=== PATIENT | female | born 1965 | race Caucasian/White ===

== ENCOUNTER 2022-10-25 13:36 | Outpatient (CLI) | payer MEDICAID, SELFPAY ==
--- NOTE | 2022-10-25 13:44 | MM_ITS ---
WS: [id number] BILATERAL 3D TOMOSYNTHESIS DIGITAL SCREENING MAMMOGRAPHY WITH CAD CLINICAL INFORMATION: SCREENING HISTORY: Screening mammogram. No current complaints. COMPARISON: None. TECHNIQUE: Bilateral CC and MLO views. FINDINGS: Scattered fibroglandular densities bilaterally. No suspicious focal mass, asymmetry, calcifications, or architectural distortion. No evidence of malignancy. Lucent centered calcification LEFT breast. MM/[place] [id number] IMPRESSION: BI-RADS: 2-Benign FOLLOW UP: 1 Year Follow-up Recommend return to annual screening mammography.
== END 2022-10-25 13:37 | disposition home or self-care (01) ==
LOC: RAD 13:40
PROVIDERS: PCP Family Medicine; Visit Provider Family Medicine
DX: Z12.31 Encounter for screening mammogram for malignant neoplasm of breast (principal)
CPT/HCPCS: 77063; 77067

== ENCOUNTER → 2022-12-29 15:46 | Outpatient (BNVA) | payer MEDICAID, SELFPAY | PROVIDERS: PCP Family Medicine; Visit Provider Registered Nurse Neonatal Intensive Care | DX: J02.9 Acute pharyngitis, unspecified (principal) | CPT/HCPCS: 87880 ==

== ENCOUNTER → 2023-07-16 16:46 | Outpatient (BNVA) | payer MEDICAID, SELFPAY | PROVIDERS: PCP Family Medicine; Visit Provider Emergency Medicine | DX: R09.81 Nasal congestion (principal) | CPT/HCPCS: 87400 ==

== ENCOUNTER 2023-07-18 10:26 | Outpatient (CLI) | payer MEDICAID, SELFPAY ==
--- NOTE | 2023-07-18 10:34 | CT_ITS ---
WS: [id number] LDCT LUNG CANCER SCREENING HISTORY: HX OF TOBACCO USE TECHNIQUE: Axial imaging performed from the apices to 1 cm below the costophrenic angles. Coronal and sagittal reformats are submitted with axial MIP series. All CT scans at [facility] use at least one of these dose optimization techniques: automated exposure control; mA and/or kV adjustment per patient size (includes targeted exams where dose is matched to clinical indication); or iterativ e reconstruction. DLP: 63.00 mGy.cm DIvol: Mean CTDIvol: 1.30 (mGy) COMPARISON: None available. Diagnostic quality: Satisfactory. Lungs: No There is several pulmonary nodules and opacifications which need further evaluation. The mo st concerning reticular nodular opacification is in the RIGHT upper lobe. There are small nodular com ponent with thickening of the interstitium. There are additional 4 mm nodules at the RIGHT apex and a lso at the LEFT lung base. No mass. No endobronchial lesions. Heart: Normal size heart with no pericardial effusion.. Other findings: Mild atherosclerosis aorta. No adenopathy. No adrenal mass. IMPRESSION: CT/CT lung screening [id number] LUNG-RADS: 3-Probably Benign FOLLOW UP: 6 Month LDCT OTHER FINDINGS (S MODIFIER): None.
== END 2023-07-18 10:27 | disposition home or self-care (01) ==
LOC: RAD 10:26
PROVIDERS: PCP Family Medicine; Visit Provider Family Medicine
DX: Z12.2 Encounter for screening for malignant neoplasm of respiratory organs (principal); Z87.891 Personal history of nicotine dependence; R91.8 Other nonspecific abnormal finding of lung field
CPT/HCPCS: 71271

== ENCOUNTER 2023-10-16 13:54 | Emergency (ER) | payer MEDICAID, SELFPAY ==
--- NOTE | 2023-10-16 13:59 | XRR_ITS ---
PROCEDURE INFORMATION: Exam: XR Left Elbow Exam date and time: 10/16/2023 2:11 PM Age: 57 years old Clinical indication: Pain; Elbow; Left; Additional info: Injury TECHNIQUE: Imaging protocol: Radiologic exam of the left elbow. Views: 3 or more views. COMPARISON: No relevant prior studies available. FINDINGS: Bones/joints: Normal. Soft tissues: Normal. XR/XR elbow LT min 3V* [id number] IMPRESSION: No acute findings.
[2023-10-16 14:04] VITALS: BP 117/77; PULSE 68; RESP 16; TEMP 36.6; O2SAT 96; BMI 29.8
[2023-10-16 15:34] VITALS: BP 128/75; PULSE 55; RESP 16; O2SAT 98
--- NOTE | 2023-10-16 15:54 | W.ED.EXTPRO ---
HPI - Extremity Problem General: Chief complaint: Extremity Injury, Upper Stated complaint: LT elbow inj Time Seen by Provider: 10/16/23 15:21 Source: patient Mode of arrival: ambulatory Limitations: no limitations History of Present Illness: Left elbow pain increasing for 2 weeks. 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 Is point tender over the lateral epicondyle Review of Systems General: Reports: 10 or more systems reviewed and unremarkable except in HPI and below Physical Exam Const: COMMON NORMALS: no acute distress, average body habitus, patient oriented x3, healthy appearing, alert and well nourished GENERAL APPEARANCE: well kempt and well developed HENMT: COMMON NORMALS: normocephalic, atraumatic and external ears normal HEAD & SCALP: normocephalic and atraumatic EXTERNAL EAR: Yes external ears normal Eye: COMMON NORMALS: EOMs intact bilaterally and conjunctivae normal CONJUNCTIVA: Yes conjunctivae normal Neck/C-Spine: COMMON NORMALS: full ROM Chest: CHEST: Yes Symmetrical chest wall rise Resp: COMMON NORMALS: normal respiratory effort, No retractions and No use of accessory muscles Cardio: COMMON NORMALS: regular rate and regular rhythm RATE: regular rate RHYTHM: regular rhythm PERIPHERAL PULSES: other (Radial pulses 2+ and symmetric) Extremity: COMMON NORMALS: normal to inspection, full ROM, capillary refill normal and no clubbing, cyanosis or edema LEFT UPPER EXTREMITY: Yes elbow joint (Point tenderness over the lateral epicondyle. No visible edema or erythema) Neuro: COMMON NORMALS: patient oriented x3 SENSORIUM/ORIENTATION: Yes alert Psych: APPEARANCE: Yes well kempt Skin: COMMON NORMALS: no rashes or lesions noted, no wounds, turgor normal and no jaundice GENERAL SKIN EXAM: no rashes or lesions noted and turgor normal Course Vital Signs: Vital signs: Vital Signs Temperature 97.9 F 10/16/23 14:04 Pulse Rate 55 L 10/16/23 15:34 Respiratory Rate 16 10/16/23 15:34 Blood Pressure 128/75 10/16/23 15:34 Pulse Oximetry 98 10/16/23 15:34 Oxygen Delivery Me thod Room Air 10/16/23 15:34 MDM - Extremity (Nontraumatic) Medical Decision Making X-ray ordered as part of triage. Personally reviewed and I see no acute abnormality. Pain is consistent with a lateral epicondylitis AKA tennis elbow Differential Diagnosis Likely gout; Unlikely herpes zoster, cellulitis, superficial thrombophlebitis or deep venous thrombosis of upper extremity Medical Records I reviewed the patient's medical records. Lab Data I reviewed the patient's lab results. Radiology Impressions Elbow X-Ray 10/16/23 13:59 IMPRESSION: No acute findings. All radiology interpretation(s) finalized by discharge ED provider radiology interpretation(s): see mdm Discharge Plan Discharge Patient Disposition: Home Condition: Stable Prescriptions: New ketorolac 10 mg tablet 10 mg PO Q6H PRN (Reason: pain) 5 Days Qty: 20 0RF No Action atorvastatin 10 mg tablet 10 mg PO DAILY ondansetron 8 mg tablet,disintegrating 8 mg PO Q8H PRN (Reason: nausea and vomiting) 5 Days Qty: 15 0RF sertraline [Zoloft] 100 mg tablet 100 mg PO DAILY Discharge Orders: Discharge ED (Routine); Ordered 10/16/23 Ordered By: Thomas Medina Referrals: Agnes Zelaya DO [Primary Care Provider] - Discharge Diet: Usual diet Discharge Activity: Limit activity as instructed Patient Instructions: Tennis Elbow (ED) Activity Restrictions/Additional Instructions: Get a tennis elbow strap as we discussed. If not improving after 1 week or pretty much resolved after 2 weeks follow-up with orthopedics. Coding Level of Care Code ED Admissions Rn for Blanco Molina
[2023-10-16] MEDS: ketorolac 10 mg Tablet PO (15:59)
[2023-10-16 16:03] VITALS: PULSE 58; O2SAT 98
== END 2023-10-16 16:04 | disposition home or self-care (01) ==
PROVIDERS: Emergency Provider Emergency Medicine; PCP Family Medicine
DX: M25.522 Pain in left elbow (principal)
CPT/HCPCS: 73080; 99283

== ENCOUNTER → 2023-11-28 13:46 | Outpatient (BNVA) | payer MEDICAID, SELFPAY | PROVIDERS: PCP Family Medicine; Referring Provider Family Medicine; Visit Provider Nurse Practitioner | DX: M77.12 Lateral epicondylitis, left elbow | CPT/HCPCS: 73080 ==

== ENCOUNTER 2024-02-03 15:18 | Outpatient (CLI) | payer MEDICAID, SELFPAY ==
--- NOTE | 2024-02-03 15:30 | XR_ITS ---
WS: [id number] XR chest 2V* [id number] REASON FOR EXAM: EXPIRATORY WHEEZING; POST VIRAL COUGH FINDINGS: Mild tortuosity of the thoracic aorta. Normal heart size. Calcified granulomas disease in both hemithoraces. No acute pulmonary parenchymal or pleural disease. Bony thorax is intact with no significant focal finding. XR/XR chest 2V* [id number] IMPRESSION: No acute chest abnormality.
== END 2024-02-03 15:19 | disposition home or self-care (01) ==
LOC: RAD 15:22
PROVIDERS: PCP Family Medicine; Visit Provider Nurse Practitioner Family
DX: R06.2 Wheezing (principal); R05.8 Other specified cough; Q25.46 Tortuous aortic arch
CPT/HCPCS: 71046

== ENCOUNTER 2024-02-13 10:15 | Outpatient (CLI) | payer MEDICAID, SELFPAY ==
--- NOTE | 2024-02-13 10:17 | CTR_ITS ---
PROCEDURE INFORMATION: Exam: CT Chest Without Contrast; Diagnostic Exam date and time: 02/13/2024 10:38 AM Age: 58 years old Clinical indication: Condition or disease; Lung condition and disease; Pulmonary nodule, solitary; Additional info: Lung nodule/6 month follow up TECHNIQUE: Imaging protocol: Diagnostic computed tomography of the chest without contrast. Radiation optimization: All CT scans at this facility use at least one of these dose optimization techniques: automated exposure control; mA and/or kV adjustment per patient size (includes targeted exams where dose is matched to clinical indication); or iterative reconstruction. COMPARISON: CT lung screening [id number] 07/18/2023 10:42 AM RADIATION DOSE METRICS: Total DLP (mGy-cm): 467.42 FINDINGS: Lungs: Mosaic pattern to the lungs. This is likely multiple small areas of air trapping due to small airways or vascular disease. Alternatively, the abnormal lung could be the hyperdense lung which would be edema and/or pneumonitis with possible atelectasis. A few small 5 mm and less solid noncalcified pulmonary nodules bilaterally are unchanged. The largest is in the right lower lobe image 44 axial series 4. A few small areas of pulmonary scarring are again noted. Otherwise, unremarkable. Pleural spaces: Unremarkable. No pneumothorax. No pleural effusion. Heart: Unremarkable. No cardiomegaly. No pericardial effusion. Coronary arteries: No calcification in the visualized coronary arteries. Lymph nodes: Unremarkable. No enlarged lymph nodes. Vasculature: Unremarkable. No aortic aneurysm. Bones/joints: Unchanged mild scoliosis. Unchanged minimal multilevel spondylosis. Otherwise, unremarkable. Soft tissues: Otherwise, unremarkable visualized body wall. Otherwise, unremarkable soft tissues. CT/CT chest [facility] [id number] IMPRESSION: 1. A few 5 mm and smaller solid noncalcified pulmonary nodules bilaterally are unchanged. For patients at low risk (minimal or absent history of smoking and of other known risk factors), no routine follow-up is indicated. For patients at high risk (history of smoking or of other known risk factors), consider optional CT Chest at 12 months. (Reference: Lizy). 2. Mosaic pattern to the lungs. This is likely multiple small areas of air trapping due to small airways or vascular disease. Alternatively, the abnormal lung could be the hyperdense lung which would be edema and/or pneumonitis with possible atelectasis. This is unchanged. 3. Additional details as above. REFERENCES: Lizy H, et al. Guidelines for Management of Incidental Pulmonary Nodules Detected on CT Images: From the Fleischner Society 2017. Radiology. 2017;284(1):228-243.
== END 2024-02-13 10:16 | disposition home or self-care (01) ==
LOC: RAD 10:15
PROVIDERS: PCP Family Medicine; Visit Provider Family Medicine
DX: R91.8 Other nonspecific abnormal finding of lung field (principal)
CPT/HCPCS: 71250

== ENCOUNTER 2024-10-10 11:25 | Outpatient (CLI) | payer MEDICAID, SELFPAY ==
--- NOTE | 2024-10-10 11:34 | XR_ITS ---
WS: [id number] Lumbar spine, 3 views, 10/10/2024 Clinical Data: LOW BACK PAIN Comparison: None. Findings: No compression fractures or subluxation is seen. No disc space narrowing is seen. The transverse processes and SI joints are normal. There is minimal calcification in the abdominal aorta but no aneurysm. XR/XR lumbar spine 2-3V* [id number] Impression: Negative lumbar spine.
--- NOTE | 2024-10-10 11:34 | XR_ITS ---
WS: [id number] Bilateral hips, 2 views each, 10/10/2024 Clinical Data: BILATERAL JOINT HIP PAIN Comparison: None. Findings: Right hip: No erosion, sclerosis, narrowing, cyst formation or fragmentation of the right femoral head is seen. There are no fractures or dislocations. The adjacent pelvis, right SI joint and pubic symphysis are normal. The soft tissues are unremarkable. Left hip: No erosion, sclerosis, narrowing, cyst formation or fragmentation of the left femoral head is seen. There are no fractures or dislocations. The adjacent pelvis, left SI joint and pubic symphysis are normal. The soft tissues are unremarkable. XR/XR hip BI 3-4V wo/w pel [id number] Impression: Negative bilateral hips.
== END 2024-10-10 11:26 | disposition home or self-care (01) ==
PROVIDERS: PCP Family Medicine; Visit Provider Family Medicine
DX: M54.50 Low back pain, unspecified (principal); M25.559 Pain in unspecified hip
CPT/HCPCS: 72100; 73522